=== PATIENT | female | born 1980 | race Caucasian/White ===

== ENCOUNTER 2021-05-02 16:50 | Emergency (ER) | payer OTHER, SELFPAY ==
--- NOTE | ~2021-05-02 | XR_ITS ---
EXAMINATION: XR forearm LT 2V DATE: 05/02/2021 17:30 INDICATION: Left forearm injury and pain. TECHNIQUE: 2 views of left forearm were obtained. COMPARISON: None. FINDINGS: Bone alignment is normal. No fracture. Joint spaces are well maintained. There is no elbow joint effusion. IMPRESSION: 1. Normal left forearm. Reviewed, dictated and finalized at location A. IMPRESSION: 1. Normal left forearm.
--- NOTE | ~2021-05-02 | XR_ITS ---
EXAMINATION: XR hand LT min 3V DATE: 05/02/2021 17:05 INDICATION: Left hand injury and pain. TECHNIQUE: 3 views of left hand were obtained. COMPARISON: None. FINDINGS: Bone alignment is normal. No fracture. Joint spaces are well maintained. IMPRESSION: 1. No fracture. Reviewed, dictated and finalized at location A. IMPRESSION: 1. No fracture.
--- NOTE | 2021-05-02 17:01 | ED.UPPEXIN ---
HPI - Extremity Injury (Upper) General Chief Complaint: Extremity Injury, Upper Stated Complaint: Lt hand pain Time Seen by Provider: 05/02/21 16:55 Source: patient and RN notes reviewed Limitations: no limitations History of Present Illness HPI narrative: 40-year-old female presents to the [facility] with an abrasion and pain to the left lateral hand. Patient states that she tripped and fell onto her hand. Did not hit head. No loss of consciousness. Reports that she had her Tdap done 4 years ago. Related Data Home Medications Medication Instructions Recorded Confirmed lisinopril 20 mg PO DAILY 05/02/21 05/02/21 Allergies Allergy/AdvReac Type Severity Reaction Status Date / Time No Known Allergies Allergy Verified 05/02/21 16:55 Review of Systems Review of Systems: All systems reviewed & are unremarkable except as noted in HPI and below Constitutional: Constitutional: Reports no additional constitutional complaints, Denies chills and Denies fever(s) Eyes: Eyes: Reports no additional eye complaints ENT: Reports system reviewed and no additional complaints, except as documented Cardiovascular: Cardiovascular: Reports no additional cardiovascular complaints Respiratory: Respiratory: Reports no additional respiratory complaints Musculoskeletal: Musculoskeletal: Reports as per HPI and Reports arthralgias (Left forearm, left wrist, left hand) Integumentary/Breasts: Skin/Breast: Reports as per HPI Comments: Abrasion to the lateral left hand Neurologic: Reports system reviewed and no additional complaints, except as documented Psychiatric: Psychiatric: Reports no additional psychiatric complaints Allergic/Immunologic: Allergic/Immunologic: Reports no additional allergic/immunologic complaints PMFSH Past Medical History Medical History (Updated 05/02/21 @ 17:41 by Christen Camarena) Hypertension Surgical History Surgical History (Updated 05/02/21 @ 17:42 by Christen Camarena) H/O tubal ligation Hx of cholecystectomy Social History Social History (Updated 05/02/21 @ 17:43 by Christen Camarena) Living arrangements: with family Exam Const: General: healthy appearing, no acute distress and alert Nutritional Appearance: well nourished Orientation/consciousness: patient oriented x3 Limitations: no limitations HENMT: Head: normal to inspection Neck: Neck: normal visual inspection, no lymphadenopathy and no meningeal signs Chest: Chest palpation & inspection: normal inspection of the chest Resp: Effort & Inspection: normal respiratory effort and no use of accessory muscles Auscultation: clear to auscultation bilaterally, no crackles, no rales, no rhonchi and no wheezes Cardio: Rate: regular rate Rhythm: regular rhythm Back/Spine/Pelvis: Back: no CVA tenderness Skin: Wounds: wounds noted avulsion left lateral hand size (2 x 1 cm), bed beefy red, drainage (Serosanguineous) and without odor; without any surrounding erythema Neuro: General: patient oriented x3, moves all extremities, no meningeal signs and no focal motor deficits Speech: normal speech Gait exam (Neuro): Normal gait present Extrem: General: normal to inspection, full ROM and capillary refill normal Left upper extremity: elbow/forearm tenderness of the proximal forearm and distal pulses intact; no swelling, no abrasions and no ecchymosis, wrist tenderness of the dorsal wrist and normal ROM and hand normal capillary refill, neuromotor exam normal, neurosensory exam normal, tenderness of the 4th digit and of the 5th digit, abnormal ROM of finger pain with active ROM of the 4th digit and of the 5th digit, swelling (lateral hand), abrasion (lateral hand) and ecchymosis (lateral hand); no lacerations and no foreign bodies Elbow/forearm/wrist images: 1. Tenderness to palpation. Hand/finger images: 1. 1 x 2 cm skin avulsion/abrasion 2. Swelling, bruising and tenderness with movement 3. Tenderness to palpation and with flexion and dors
[2021-05-02 17:13] VITALS: BP 111/65; PULSE 95; RESP 18; TEMP 36.5; O2SAT 100
[2021-05-02] MEDS: IBUPROFEN 600 MG TABLET PO (17:13)
== END 2021-05-02 17:48 | disposition home or self-care (01) ==
PROVIDERS: Emergency Provider Nurse Practitioner; PCP Family Medicine
DX: S63.502A Unspecified sprain of left wrist, initial encounter (principal); S66.912A Strain of unspecified muscle, fascia and tendon at wrist and hand level, left hand, initial encounter; W01.0XXA Fall on same level from slipping, tripping and stumbling without subsequent striking against object, initial encounter; S60.222A Contusion of left hand, initial encounter; S60.512A Abrasion of left hand, initial encounter; I10 Essential (primary) hypertension
CPT/HCPCS: 73090; 73130; 99213; A9270; G0463

== ENCOUNTER 2021-12-26 15:42 | Emergency (ER) | payer OTHER, SELFPAY ==
[2021-12-26 15:53] VITALS: BP 136/80; PULSE 115; RESP 18; TEMP 37.2; O2SAT 98
--- NOTE | 2021-12-26 15:54 | ED.BACK ---
HPI - Back Pain/Injury General Chief Complaint: Upper Respiratory Infection Stated Complaint: Fever,Lower Back Pain Time Seen by Provider: 12/26/21 15:54 Source: patient Mode of arrival: ambulatory Limitations: no limitations History of Present Illness HPI Narrative: Ms. Delgado is a 41-year-old female patient presenting to the clinic today with complaints of fever and low back pain x 2 days. She reports she has had fever as high as 102.8 ?F. She reports that she took a COVID test yesterday and it was negative. 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 Related Data Home Medications Medication Instructions Recorded Confirmed lisinopril 20 mg PO DAILY 05/02/21 12/26/21 Allergies Allergy/AdvReac Type Severity Reaction Status Date / Time No Known Allergies Allergy Verified 12/26/21 15:48 Review of Systems Review of Systems: Pertinent positives per HPI. Patient denies any rash, headache, visual changes, dizziness, cough, runny nose, sore throat, shortness of breath, chest pain, palpitations, nausea, vomiting, diarrhea, constipation, abdominal pain, or any urinary issues. [facility] Past Medical History Medical History Hypertension Surgical History Surgical History H/O tubal ligation Hx of cholecystectomy Comments At the time of my signature, I reviewed and agree with the nursing past medical, surgical, social, and family history. There is no relevant family history pertinent to the patient complaint. Exam Narrative: General: Well-developed, well nourished, in no apparent distress Head: Normocephalic, atraumatic Eyes: Pupils equally round and reactive to light bilaterally, EOM intact, sclera and conjunctive clear, no discharge, lids normal Ears: TMs intact and dull, ear canals clear, no drainage, grossly hearing normal. Nose: Nares patent, clear discharge, no inflammation, no sinus tenderness. Mouth: Oropharynx without lesions or masses, good dentition, MMM. Postnasal drip Neck: Supple, trachea midline, no enlargement of anterior or posterior cervical nodes, no thyroid masses or goiter palpable. Cardio: Regular rate and rhythm, s1 and s2 normal, no murmur appreciated. Resp: Clear to auscultation bilaterally anteriorly and posteriorly, no rhonchi, rales, wheezing or rubs general: Well-developed, well nourished, in no apparent distress. Abdomen: Soft, pliable, no organomegaly, no tenderness to palpation, bowel sounds present all 4 quadrants, +right CVAT tenderness Course Course Emergency Course: Portions of this record may have been created with voice recognition software. Level of Care: Express Care Visit Vital Signs Vital signs: Vital signs reviewed MDM - Back Pain/Injury MDM Narrative Medical decision making narrative: At the time of assessment patient is resting comfortably on the exam table she is afebrile while in the office today. Reports her highest temp was 102.8. She had done an at home COVID test yesterday was negative. Influenza testing and urine analysis was completed today in the clinic. Influenza testing is negative. UA test is positive for 3+ blood and a trace of leukocytes. She is currently on her menses. I will send this for urine culture to determine if there is a urinary tract infection however she is not having any urinary symptoms at this time. I suspect a viral syndrome and supportive measures and further treatment if symptoms persist or get worse. Patient voiced understanding of discharge instructions. Differential Diagnosis Differential diagnosis: Likely other (UTI, COVID, influenza, back strain, viral syndrome, constipation) Discharge Plan Discharge Clinical Impression: Viral syndrome Patient Disposition: Home, Self-Care Condition: Stable Instructions: Viral Syndrome (ED) Additional Instructions: Cory
== END 2021-12-26 17:00 | disposition home or self-care (01) ==
PROVIDERS: Emergency Provider Nurse Practitioner Family; PCP Family Medicine
DX: B34.9 Viral infection, unspecified (principal); I10 Essential (primary) hypertension
CPT/HCPCS: 81003; 87086; 87088; 87804; 99213; G0463

== ENCOUNTER 2023-02-18 18:44 | Emergency (ER) | payer OTHER, SELFPAY ==
[2023-02-18 18:50] VITALS: BP 129/81; PULSE 87; RESP 18; TEMP 36.6; O2SAT 99
--- NOTE | 2023-02-18 18:59 | ED.EAR ---
HPI - Ear Problem General Chief complaint: Ear Stated complaint: LT Ear Irritation Time Seen by Provider: 02/18/23 18:53 Source: patient and RN notes reviewed Mode of arrival: ambulatory Limitations: no limitations History of Present Illness HPI Narrative: Patient presents today complaining of left ear pain x2 days. Denies any additional symptoms including drainage, decreased hearing, congestion, rhinorrhea, fever, cough. She has been taking ibuprofen with relief and currently rates her pain 09/09. Related Data Home Medications Medication Instructions Recorded Confirmed lisinopril 20 mg tablet 20 mg PO DAILY 05/02/21 02/18/23 Allergies Allergy/AdvReac Type Severity Reaction Status Date / Time No Known Allergies Allergy Verified 02/18/23 18:46 Review of Systems Review of Systems: CONSTITUTIONAL: Denies body aches, fever, chills, or sweats. EYES: Denies visual changes, redness, or discharge. ENT: Denies rhinorrhea, congestion, sore throat. + left ear pain CARDIOVASCULAR: Denies chest pain, palpitations, or edema. RESPIRATORY: Denies cough or dyspnea. GASTROINTESTINAL: Denies abdominal pain, nausea, vomiting, or diarrhea. GENITOURINARY: Denies dysuria or hematuria. SKIN: Denies rash, itching, or wounds. MUSCULOSKELETAL: Denies back pain, joint pain, or myalgia. NEUROLOGIC: Denies headache, numbness, tingling, or weakness. PSYCH: Denies depression or anxiety. PMFSH Past Medical History Medical History Hypertension Surgical History Surgical History H/O tubal ligation Hx of cholecystectomy Social History Social History Living arrangements: with family Comments At time of signature, I have reviewed and agree with nursing past medical, surgical, social and family history unless otherwise noted. Please see nursing chart for further information. There is no relevant family history pertinent to the presenting complaint Exam Narrative: GENERAL: Well-appearing, well-nourished, and in no acute distress. HEAD: Normocephalic, atraumatic. EYES: EOMI. No redness or drainage. Conjunctivae normal. ENT: Mucous membranes pink and moist. Nares clear. No rhinorrhea. Right TM and canal normal. Left canal normal. Left TM is injected and opaque. NECK: Normal AROM. Supple. No lymphadenopathy. CHEST: No respiratory distress. EXTREMITIES: Normal range of motion. No edema. SKIN: Warm, dry, no rash. Capillary refill normal. Normal skin turgor. NEURO: No focal deficits. Alert and oriented x3. Gait steady. PSYCH: Normal affect. No signs of depression or anxiety. Course Course Level of Care: Express Care Visit Vital Signs Vital signs: Vital Signs Temperature 97.9 F 02/18/23 18:50 Pulse Rate 87 02/18/23 18:50 Respiratory Rate 18 02/18/23 18:50 Blood Pressure 129/81 02/18/23 18:50 Pulse Oximetry 99 02/18/23 18:50 Oxygen Delivery Room Air 02/18/23 18:50 Temperature 97.9 F 02/18/23 18:50 Pulse Rate 87 02/18/23 18:50 Respiratory Rate 18 02/18/23 18:50 Blood Pressure 129/81 02/18/23 18:50 Pulse Oximetry 99 02/18/23 18:50 Oxygen Delivery Room Air 02/18/23 18:50 Reviewed. Pt has been instructed to follow up with her PCP regarding her elevated blood pressure today. Medical Decision Making MDM Narrative Medical decision making narrative: Exam consistent with left otitis media. Will treat with amoxicillin. Anticipatory guidance given. Differential Diagnosis Differential Diagnosis: Otitis media, otitis externa, ruptured TM, serous otitis, eustachian tube dysfunction, cerumen impaction Vital Signs Vital Signs: Vital Signs Temperature 97.9 F 02/18/23 18:50 Pulse Rate 87 02/18/23 18:50 Respiratory Rate 18 02/18/23 18:50 Blood Pressure 129/81 02/18/23 18:50 Pul
== END 2023-02-18 19:04 | disposition home or self-care (01) ==
PROVIDERS: Emergency Provider Nurse Practitioner; PCP Family Medicine
DX: H66.92 Otitis media, unspecified, left ear (principal); I10 Essential (primary) hypertension
CPT/HCPCS: 99213; G0463

== ENCOUNTER 2023-11-19 08:01 | Emergency (ER) | payer OTHER, SELFPAY ==
--- NOTE | 2023-11-19 08:15 | ED.EAR ---
HPI - Ear Problem General Chief complaint: Ear Stated complaint: lt ear pain Time Seen by Provider: 11/19/23 08:14 Source: patient, RN notes reviewed and old records reviewed Mode of arrival: ambulatory Limitations: no limitations History of Present Illness HPI Narrative: 43-year-old female to Express Care with complaint left ear pain and left-sided throat pain for 3 days. Patient denies fever, cough, or GI complaints. Patient able to speak in full sentences. Patient able to tolerate fluids by mouth. Related Data Home Medications Medication Instructions Recorded Confirmed lisinopril 20 mg tablet 20 mg PO DAILY 05/02/21 11/19/23 Allergies Allergy/AdvReac Type Severity Reaction Status Date / Time No Known Allergies Allergy Verified 11/19/23 08:17 Review of Systems Review of Systems: All systems reviewed & are unremarkable except as noted in HPI and below Constitutional: Constitutional: Reports no additional constitutional complaints and Denies fever(s) Eyes: Eyes: Reports no additional eye complaints ENT: Reports as per HPI, Reports otalgia (left) and Reports sore throat Cardiovascular: Cardiovascular: Reports no additional cardiovascular complaints, Denies chest pain and Denies dyspnea Respiratory: Respiratory: Reports no additional respiratory complaints, Denies cough and Denies dyspnea Musculoskeletal: Musculoskeletal: Reports no additional musculoskeletal complaints Neurologic: Reports system reviewed and no additional complaints, except as documented Psychiatric: Psychiatric: Reports no additional psychiatric complaints PMFSH Past Medical History Medical History Hypertension Surgical History Surgical History H/O tubal ligation Hx of cholecystectomy Social History Social History Living arrangements: with family Comments At the time of my signature, I reviewed and agree with the nursing past medical, surgical, social, and family history. There is no relevant family history pertinent to the patient complaint. Exam Const: General: cooperative, healthy appearing, comfortable, no acute distress, alert and well nourished Nutritional Appearance: well nourished Orientation/consciousness: patient oriented x3 Limitations: no limitations HENMT: Head: normal to inspection Ears: external ears normal and TM abnormal dull, with fluid behind the TM on the left and not mobile on the left Face/Nose/Sinus: Normal external nose present, Normal nares present, normal facial exam, No erythema and No edema Face and sinus: normal facial exam, no erythema and no edema Mouth: Yes Normal oral and palatal mucosa present Throat: postnasal drainage Eyes: General: appearance normal, both eyes and all related structures Neck: Neck: normal visual inspection, full ROM and no meningeal signs Lymphatic: no lymphadenopathy noted and no lymphedema noted Chest: Chest palpation & inspection: normal inspection of the chest Resp: Effort & Inspection: normal respiratory effort and able to speak in complete sentences Auscultation: clear to auscultation bilaterally Cardio: Jugular venous distension: no JVD Rate: regular rate Rhythm: regular rhythm Back/Spine/Pelvis: Cervical Spine: cervical ROM normal Skin: General skin exam: normal color, no rashes or lesions noted and turgor normal Neuro: General: patient oriented x3, gait normal, moves all extremities and no meningeal signs Speech: normal speech Gait exam (Neuro): Normal gait present Extrem: General: normal to inspection, full ROM and capillary refill normal Psych: Appearance: grossly normal and well kempt Course Course Emergency Course: Some parts of this dictation were generated by voice recognition software and may contain typographical and/or grammatical inaccuracies. Level
[2023-11-19 08:17] VITALS: BP 121/70; PULSE 88; RESP 18; TEMP 36.4; O2SAT 99
[2023-11-19 08:18] VITALS: BP 121/70; PULSE 88; RESP 18; TEMP 36.4; O2SAT 99
== END 2023-11-19 08:38 | disposition home or self-care (01) ==
PROVIDERS: Emergency Provider Nurse Practitioner Family; PCP Family Medicine
DX: H66.92 Otitis media, unspecified, left ear (principal); I10 Essential (primary) hypertension
CPT/HCPCS: 99213; G0463

== ENCOUNTER 2024-02-13 04:30 | Emergency (ER) | payer SELFPAY ==
[2024-02-13 04:50] VITALS: BP 156/122; PULSE 115; RESP 20; TEMP 36.7; O2SAT 100
--- NOTE | 2024-02-13 05:06 | ED.GENADULT ---
HPI - General Adult General Chief complaint: Unspecified Stated complaint: I have to go #2 and can't get it out Time Seen by Provider: 02/13/24 04:39 History of Present Illness HPI narrative: 43-year-old female presenting with 4 hours of constipation. no history of constipation. by time I interviewed the patient she had a bowel movement is requesting discharge. Related Data Home Medications Medication Instructions Recorded Confirmed lisinopril 20 mg tablet 20 mg PO DAILY 05/02/21 11/19/23 Allergies Allergy/AdvReac Type Severity Reaction Status Date / Time No Known Allergies Allergy Verified 11/19/23 08:17 [facility] Past Medical History Medical History Hypertension Surgical History Surgical History H/O tubal ligation Hx of cholecystectomy Social History Social History Living arrangements: with family Exam Narrative: APPEARANCE: No apparent distress. Head: atraumatic. EYES: EOMI, NOSE: Atraumatic NECK: Trachea midline RESPIRATORY: No increased rate of breathing CARDIOVASCULAR: RRR, ABDOMINAL: Non-distended Soft nontender MUSCULOSKELETAl: No obvious deformities NEURO: Alert. Moving 4/4 extremities SKIN:: Warm, dry. Normal color PSYCHIATRIC: Normal affect Course Vital Signs Vital signs: Vital Signs Temperature 98.1 F 02/13/24 04:50 Pulse Rate 115 H 02/13/24 04:50 Respiratory Rate 02/13/24 04:50 Blood Pressure 156/122 H 02/13/24 04:50 Pulse Oximetry 100 02/13/24 04:50 Oxygen Delivery Room Air 02/13/24 04:50 Temperature 98.1 F 02/13/24 04:50 Pulse Rate 115 H 02/13/24 04:50 Respiratory Rate 20 02/13/24 04:50 Blood Pressure 156/122 H 02/13/24 04:50 Pulse Oximetry 100 02/13/24 04:50 Oxygen Delivery Room Air 02/13/24 04:50 Medical Decision Making [facility] Narrative Medical decision making narrative: -Course: 43-year-old presenting with 4 hours of constipation. She was able have a bowel movement in the emergency department requesting discharge. My exam her abdomen is soft nontender no guarding rebound. Patient discharged with return precautions. Vital Signs Vital Signs: Vital Signs Temperature 98.1 F 02/13/24 04:50 Pulse Rate 115 H 02/13/24 04:50 Respiratory Rate 20 02/13/24 04:50 Blood Pressure 156/122 H 02/13/24 04:50 Pulse Oximetry 100 02/13/24 04:50 Oxygen Delivery Room Air 02/13/24 04:50 Temperature 98.1 F 02/13/24 04:50 Pulse Rate 115 H 02/13/24 04:50 Respiratory Rate 20 02/13/24 04:50 Blood Pressure 156/122 H 02/13/24 04:50 Pulse Oximetry 100 02/13/24 04:50 Oxygen Delivery Room Air 02/13/24 04:50 Discharge Plan Discharge Clinical Impression: Constipation Patient Disposition: Home, Self-Care Condition: Stable Instructions: Antibiotic Form, Constipation (DC) Additional Instructions: Follow-up with your PCP. You can use [id number] stool softeners he continued constipation. Prescriptions: No Action lisinopril 20 mg tablet 20 mg PO DAILY cefdinir 300 mg capsule 300 mg PO Q12H 10 Days Qty: 20 0RF Follow-up/Referrals: Erick,Noris Taylor MD [Primary Care Provider] -
[2024-02-13 05:11] VITALS: BP 138/72; PULSE 85; RESP 18; O2SAT 100
--- NOTE | 2024-02-13 05:12 | PC.NURSE ---
pt had a bowel movement prior to medication being administered.
== END 2024-02-13 05:11 | disposition home or self-care (01) ==
LOC: ANHED 05:15
PROVIDERS: Emergency Provider Emergency Medicine; PCP Family Medicine
DX: K59.00 Constipation, unspecified (principal); I10 Essential (primary) hypertension; Z90.49 Acquired absence of other specified parts of digestive tract
CPT/HCPCS: 99283

== ENCOUNTER 2024-09-20 18:37 | Emergency (ER) | payer OTHER, BC, SELFPAY ==
--- NOTE | 2024-09-20 18:51 | ED.BACK ---
HPI - Back Pain/Injury General Chief Complaint: Back Pain/Injury Stated Complaint: back injury Time Seen by Provider: 09/20/24 18:50 Source: patient Mode of arrival: ambulatory Limitations: no limitations History of Present Illness HPI Narrative: Eda is a 44-year-old female patient presenting to the clinic today with complaints of back pain/injury. She reports she stepped forward and was reaching out to grab a child who was crying and felt a pain in he her left/right mid back. States that the pain is worse with movement of her arms and also when she is trying to sit. She denies any saddle anesthesia or any numbness or tingling going down her legs. Pain is worse with movement. Related Data Home Medications ?Medication ?Instructions ?Recorded ?Confirmed ?Last Taken ?Type lisinopril 20 mg tablet 20 mg PO DAILY 05/02/21 11/19/23 Unknown History Allergies Allergy/AdvReac Type Severity Reaction Status Date / Time No Known Allergies Allergy Verified 11/19/23 08:17 Review of Systems Review of Systems: Pertinent positives per HPI. Patient denies any fever, chills, rash, headache, visual changes, dizziness, cough, runny nose, sore throat, shortness of breath, chest pain, palpitations, nausea, vomiting, diarrhea, constipation, abdominal pain, or any urinary issues. PMFSH Past Medical History Medical History Hypertension Surgical History Surgical History H/O tubal ligation Hx of cholecystectomy Social History Social History Living arrangements: with family Comments At the time of my signature, I reviewed and agree with the nursing past medical, surgical, social, and family history. There is no relevant family history pertinent to the patient complaint. Exam Narrative: General: Well-developed, well nourished, in no apparent distress Head: Normocephalic, atraumatic. Cardio: Regular rate and rhythm, s1 and s2 normal, no murmur appreciated. Resp: Clear to auscultation bilaterally, no rhonchi, rales, wheezing or rubs. Musculoskeletal: No deformity, tender to palpation over the right and left mid low back just below the bra line, pain with raising her arms up as well as turning side to side, grossly normal range of motion, muscle strength strong and equal in BLE. SLT negative, patellar reflexes 2/4 bilaterally, negative foot drop, normal gait and station Course Course Emergency Course: Portions of this record may have been created with voice recognition software. Level of Care: Express Care Visit Vital Signs Vital signs: Vital signs reviewed MDM - Back Pain/Injury MDM Narrative Medical decision making narrative: At the time of visit patient is resting comfortably on the exam table. Patient appears to be nontoxic. Plan: I suspect patient has a mid back strain. Prescription for Medrol Dosepak and Flexeril was sent to the pharmacy. Supportive measures were discussed with the patient and they voiced understanding discharge instructions and agrees to treatment plan. Return precautions reviewed Differential Diagnosis Differential diagnosis: Likely lumbar radiculopathy, sciatica, strain of lumbar region, thoracic back pain, discitis and other (It thoracic back strain) Discharge Plan Discharge Clinical Impression: Strain of mid-back Qualifiers: Encounter type: initial encounter Qualified Code(s): S29.012A - Strain of muscle and tendon of back wall of thorax, initial encounter Patient Disposition: Home, Self-Care Condition: Stable Instructions: Antibiotic Form, Thoracic Back Strain (ED) Additional Instructions: Take any prescription medication only as prescribed-Medrol Dosepak and Flexeril Be mindful of sedation precautions given to you if taking a muscle relaxer. May use heat or ice to the affected area Consider massage or chiropractor adjustment if this was discussed with provider May use blue emu, lidocaine patches, or asper cream to affected area- do not apply heat or ice directly over cream- can cause burn. Complete appropriate back stretching exercises. Follow up with your PCP in 3-5 days if symptom persist. Patient Language: Honduran Prescriptions: New methylprednisolone [Medrol (Garth)] 4 mg tablets,dose pack See Rx Instructions PO .COMPLEX Qty: 21 0RF Rx Instructions: orally per package directions cyclobenzaprine 10 mg tablet 10 mg PO Q8H PRN (Reason: muscle spasm) 7 Days Qty: 21 0RF No Action lisinopril 20 mg tablet 20 mg PO DAILY cefdinir 300 mg capsule 300 mg PO Q12H 10 Days Qty: 20 0RF Follow-up/Referrals: UNKNOWN,DOCTOR [Primary Care Provider] - Stand Alone Forms: Work/School Release IP Time of Disposition: 19:05 Quality NIHSS Nursing Documentation ED NIHSS nursing documentation: reviewed/agree
[2024-09-20 19:05] VITALS: BP 144/88; PULSE 95; RESP 18; TEMP 36.4; O2SAT 100
--- OUTSIDE RECORDS SUMMARY | 2024-09-22 20:22 | XMS_ITS | Clinical Summary ---
Author Organization [facility] Address [address] [place] [address]. [place] [address] [place] [address] Care Team Providers Care Rn Mental Health Name Role Phone Unavailable Primary Care Provider Unavailabl e Social History Tobacco Use Types Packs/Day Years Used Date Smoking Tobacco: Never Assessed Comments Unknown Sex and Gender Information Value Date Recorded Sex Assigned at Not on file Legal Sex Female 4:39 PM CDT Gender Identity Not on file Sexual Orientation Not on file Plan of Treatment Health Maintenance Due Date Last Done Comments Cervical Cancer Screening Pa p Smear (Age 30 to 64) Every 3 Years 1981 Annual Physical 1984 Hepatitis C 1999 DTaP, Tdap and Td Vaccines ( 1 - Tdap) 2000 Hepatitis B Vaccines (1 of 3 - 19+ 3-dose series) 2000 Cervical Cancer Screening Pa p with HPV Testing (Age 30 to 64) Every 5 Years 2011 Cervical Cancer Screening with HPV 2011 Mammogram Screening 2021 COVID-19 Vaccine (2023-2 5 season) 2024 Influenza Adult (#1) 2024 HPV Vaccines Aged Out No longer eligi ble based on patient's age to complete this topic Meningococcal Vaccine Aged Out No sridhar chuck eligible based on patient's age to complete this topic Pneumococcal Vaccine: Pediat rics (0 to 5 Years) and At-Risk Patients (6 to 64 Years) Aged Out No longer eligible b ased on patient's age to complete this topic RSV Immunizations Under 20 Months Aged Out No longer eligible based on patient's age to complete this topic
--- OUTSIDE RECORDS SUMMARY | 2024-09-22 20:22 | XMS_ITS | Data Portability ---
Author Organization [facility] [employer], Main Office Address [address] [place] [address] Assessment No assessment recorded. Plan of Treatment Reminders Order Date Submit Date Provider Last Modified By Organization Details Last Modified Time Details Appointments None recorded. Lab CBC 2022 023 [email or web address] [facility] (Lab), [address] [place], [address], 3 10:54:30 TSH, serum, reflex free T4 2022 023 [email or web address] [facility] (Lab), [address] [place], [address], 3 10:54:30 CMP, serum or plasma [address] (Lab), [address] [place], [address], 3 14:09:16 HbA1c (hemoglobin A1c), blood [address] (Lab), [address] [place], [address], 3 14:09:37 lipid panel, serum 2022 023 [email or web address] [facility] (Lab), [address] [place], [address], 3 10:54:31 Referral gynecologis t referral 2022 023 [email or web address] [facility], [address], [place], [address], 4 09:26:01 Procedures None recorded. Surgeries None recorded. Imaging None recorded. Medication Orders lisinopril 20 mg tablet 2022 023 [id number], [address] [facility], [place], [place], [id number], 3 10:00:49 Patient TargetsNo targets recorded. Patient InstructionsNo instructions recorded. 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 0 Diabe page Scree nancy Crite kirill: <5.7% Consi stent with absen ce of diabe page 5.7-6 .4% Consi stent with incre ased risk for diabe page (pred iabet es) >OR=6 .5% Consi stent with diabe page REFER ENCE: Diabe page Care 2016, 39(Sewell ppl.1 ):s13 -s22 Not Available [facility] (Lab) [address] [place], [address], 12/05/2021 20:16:20 12/06/19 22 12/05/2021 URINA LYSIS COMPL ETE, IRIS color light- yellow Not Available [facility] (Lab) [address] [place], [address], 12/05/2021 20:02:16 12/06/19 22 12/05/2021 URINA LYSIS COMPL ETE, IRIS appear turbid abnormal Not Available [facility] (Lab) [address] [place], [address], 12/05/2021 20:02:16 12/06/19 22 12/05/2021 URINA LYSIS COMPL ETE, IRIS specific gravity 1.005 1.001- 1.030 Not Available [facility] (Lab) [address] [place], [address], 12/05/2021 20:02:16 12/06/19 22 12/05/2021 URINA LYSIS COMPL ETE, IRIS pH 6.0 pH_un its 5.0-9. 0 Not Available [facility] (Lab) [address] [place], [address], 12/05/2021 20:02:16 12/06/19 22 12/05/2021 URINA LYSIS COMPL ETE, IRIS leukocytes 75 tony/u L negati ve- abnormal Not Available [facility] (Lab) [address] [place], [address], 12/05/2021 20:02:16 12/06/19 22 12/05/2021 URINA LYSIS COMPL ETE, IRIS nitrite negati ve negati ve- Not Available [facility] (Lab) [address] [place], [address], 12/05/2021 20:02:16 12/06/19 22 12/05/2021 URINA LYSIS COMPL ETE, IRIS protein negati ve mg/dL negati ve- Not Available [facility] (Lab) [address] [place], [address], 12/05/2021 20:02:16 12/06/19 22 12/05/2021 URINA LYSIS COMPL ETE, IRIS glucose normal mg/dL normal - Not Available [facility] (Lab) [address] [place], [address], 12/05/2021 20:02:16 12/06/19 22 12/05/2021 URINA LYSIS COMPL ETE, IRIS ketones negati ve mg/dL negati ve- Not Available [facility] (Lab) [address] [place], [address], 12/05/2021 20:02:16 12/06/19 22 12/05/2021 URINA LYSIS COMPL ETE, IRIS urobilinogen normal mg/dL normal - Not Available [facility] (Lab) [address] [place], [address], 12/05/2021 20:02:16 12/06/19 22 12/05/2021 URINA LYSIS COMPL ETE, IRIS bilirubin negati ve mg/dL negati ve- Not Available [facility] (Lab) [address] [place], [address], 12/05/2021 20:02:16 12/06/19 22 12/05/2021 URINA LYSIS COMPL ETE, IRIS blood negati ve mg/dL negati ve- Not Available [facility] (Lab) [address] [place], [address], 12/05/2021 20:02:16 12/06/19 22 12/05/2021 URINA LYSIS COMPL ETE, IRIS white blood cells 0-8 /i??h pfi?? 0-8 Not Available [facility] (Lab) [address] [place], [address], 12/05/2021 20:02:16 12/06/19 22 12/05/2021 URINA LYSIS COMPL ETE, IRIS red blood cells none /i??h pfi?? 0-4 Not Available [facility] (Lab) [address] [place], [address], 12/05/2021 20:02:16 12/06/19 22 12/05/2021 URINA LYSIS COMPL ETE, IRIS bacteria many abnormal Not Available [facility] (Lab) [address] [place], [address], 12/05/2021 20:02:16 12/06/19 22 12/05/2021 URINA LYSIS COMPL ETE, IRIS squamous epithelial packed field /i??l pfi?? abnormal Not Available [facility] (Lab) [address] [place], [address], 12/05/2021 20:02:16 12/06/19 22 12/05/2021 COMPR EHENS DUSTIN METAB OLIC PANEL sodium 140 mmol/ L 137-14 5 Not Available [facility] (Lab) [address] [place], [address], 12/05/2021 19:53:29 12/06/19 22 12/05/2021 COMPR EHENS DUSTIN METAB OLIC PANEL potassium 4.7 mmol/ L 3.5-5. 1 Not Available [facility] (Lab) [address] [place], [address], 12/05/2021 19:53:29 12/06/19 22 12/05/2021 COMPR EHENS DUSTIN METAB OLIC PANEL chloride 101 mmol/ L 98-107 Not Available [facility] (Lab) [address] [place], [address], 12/05/2021 19:53:29 12/06/19 22 12/05/2021 COMPR EHENS DUSTIN METAB OLIC PANEL carbon dioxide 28 mmol/ L 22-30 Not Available [facility] (Lab) [address] [place], [address], 12/05/2021 19:53:29 12/06/19 22 12/05/2021 COMPR EHENS DUSTIN METAB OLIC PANEL agap 15.7 mmol/ L 14-22 Not Available [facility] (Lab) [address] [place], [address], 12/05/2021 19:53:29 12/06/19 22 12/05/2021 COMPR EHENS DUSTIN METAB OLIC PANEL glucose 131 mg/dL 70-99 high Not Available [facility] (Lab) [address] [place], [address], 12/05/2021 19:53:29 12/06/19 22 12/05/2021 COMPR EHENS DUSTIN METAB OLIC PANEL BUN 10 mg/dL 8-19 Not Available [facility] (Lab) [address] [place], [address], 12/05/2021 19:53:29 12/06/19 22 12/05/2021 COMPR EHENS DUSTIN METAB OLIC PANEL creatinine 0.84 mg/dL 0.66-1 .25 Not Available [facility] (Lab) [address] [place], [address], 12/05/2021 19:53:29 12/06/19 22 12/05/2021 COMPR EHENS DUSTIN METAB OLIC PANEL GFR >60 Refer ence Range : Carriere ge GFR Healt hy Adult : >60 mL/mi n/1.7 3 m2 Chron ic Kidne y Disea se: 15-60 mL/mi n/1.7 3 m2 Kidne y Failu re: <15/m L/min /1.73 m2 www.n iddk. nih.g ov The MDRD study equat ion has not been valid ated in child elizabeth <18 years of age; pregn ant women ; the elder ly >85 years of age; or in some racia l or ethni c subgr oups, such as Hispa nics. Outsi de the valid ated karlee eters , estim ated GFR is less accur ate, requi ring clini annmarie judgm ent on a case- by-ca se basis . Clini annmarie inter preta tion for other races and ages must be made by the clini [place]. The MDRD study equat ion has not been valid ated for the evalu ation of serum creat inine relat ed to nutri les l statu s or medic ation usage . For perso ns <18 years of age, a pedia tric GFR calcu lator is avail able on the [facility] websi te: https ://varun hill.marcial cagle.o rg/pr ofess ional s/kdo qi/gf r_cal culat or Not Available [facility] (Lab) [address] [place], [address], 12/05/2021 19:53:29 12/06/19 22 12/05/2021 COMPR EHENS DUSTIN METAB OLIC PANEL alkaline phosphatase 79 U/L 38-126 Not Available [facility] (Lab) [address] [place], [address], 12/05/2021 19:53:29 12/06/19 22 12/05/2021 COMPR EHENS DUSTIN METAB OLIC PANEL alanine aminotransfe rase 106 U/L 0-35 high Not Available [facility] (Lab) [address] [place], [address], 12/05/2021 19:53:29 12/06/19 22 12/05/2021 COMPR EHENS DUSTIN METAB OLIC PANEL aspartate aminotransfe rase 74 U/L 15-37 high Not Available [facility] (Lab) [address] [place], [address], 12/05/2021 19:53:29 12/06/19 22 12/05/2021 COMPR EHENS DUSTIN METAB OLIC PANEL bilirubin, total 1.40 mg/dL 0.20-1 .30 high Not Available [facility] (Lab) [address] [place], [address], 12/05/2021 19:53:29 12/06/19 22 12/05/2021 COMPR EHENS DUSTIN METAB OLIC PANEL calcium 10.0 mg/dL 8.4-10 .2 Not Available [facility] (Lab) [address] [place], [address], 12/05/2021 19:53:29 12/06/19 22 12/05/2021 COMPR EHENS DUSTIN METAB OLIC PANEL total protein 8.3 g/dL 6.3-8. 2 high Not Available [facility] (Lab) [address] [place], [address], 12/05/2021 19:53:29 12/06/19 22 12/05/2021 COMPR EHENS DUSTIN METAB OLIC PANEL albumin 4.8 g/dL 3.4-5. 0 Not Available [facility] (Lab) [address] [place], [address], 12/05/2021 19:53:29 12/06/19 22 12/05/2021 COMPR EHENS DUSTIN METAB OLIC PANEL globulin 3.5 g/dL 2.6-4. 2 Not Available [facility] (Lab) [address] [place], [address], 12/05/2021 19:53:29 12/06/19 22 12/05/2021 COMPR EHENS DUSTIN METAB OLIC PANEL A/G ratio 1.4 ratio 1.0-2. 0 Not Available [facility] (Lab) [address] [place], [address], 12/05/2021 19:53:29 12/06/19 22 12/05/2021 LIPID PANEL cholesterol 214 mg/dL 140-19 9 high NIH JANE NSUS RECOM MENDA TION FOR ALMAS STERO L: ADULT CHILD LOW RISK: <200 <170 BORDE RLINE : <200- 239 ----- HIGH RISK: >240 >200 Not Available [facility] (Lab) [address] [place], [address], 12/05/2021 19:53:25 12/06/19 22 12/05/2021 LIPID PANEL triglyceride s 169 mg/dL 0-150 high NIH JANE NSUS REPOR T RECOM MENDA TION FOR TRIGL YCERI RASHAD: ADULT CHILD LOW RISK: <150 ----- BODER LINE: 150-1 99 ----- HIGH RISK: >200 ----- Not Available [facility] (Lab) [address] [place], [address], 12/05/2021 19:53:25 12/06/19 22 12/05/2021 LIPID PANEL HDL cholesterol 42 mg/dL 40- Not Available [facility] (Lab) [address] [place], [address], 12/05/2021 19:53:25 12/06/1912/05/2021 LIPID PANEL LDL cholesterol, calculated 138 mg/dL 0-130 high NIH JANE NSUS REPOR T RECOM MENDA TIONS FOR LDL: ADULT CHILD LOW RISK <130 <110 (OPTI MAL LDL) <100 ----- BORDE RLINE : 130-1 59 ----- HIGH RISK: >160 >130 A TRIGL YCERI DE RESUL T >400 INVAL IDATE S THE CALCU LATIO N FOR LDL FRACT IONAT ION - THE LDL RESUL T WILL NOT BE REPOR JOHNATHAN. Not Available [facility] (Lab) [address] [place], [address], 12/05/2021 19:53:25 12/06/19 22 12/05/2021 CBC/C OMPLE TE BLD COUNT W/DIF F white blood cells 5.4 x10'3 /uL 4.2-10 .8 Not Available [facility] (Lab) [address] [place], [address], 12/05/2021 19:21:44 12/06/19 22 12/05/2021 CBC/C OMPLE TE BLD COUNT W/DIF F red blood cells 4.66 x10'6 /uL 3.80-5 .20 Not Available [facility] (Lab) [address] [place], [address], 12/05/2021 19:21:44 12/06/19 22 12/05/2021 CBC/C OMPLE TE BLD COUNT W/DIF F hemoglobin 14.0 g/dL 12.0-1 5.6 Not Available [facility] (Lab) [address] [place], [address], 12/05/2021 19:21:44 12/06/19 22 12/05/2021 CBC/C OMPLE TE BLD COUNT W/DIF F hematocrit 42.3 % 35.7-4 5.7 Not Available [facility] (Lab) [address] [place], [address], 12/05/2021 19:21:44 12/06/19 22 12/05/2021 CBC/C OMPLE TE BLD COUNT W/DIF F mean red cell volume 90.8 fL 82.0-9 9.0 Not Available [facility] (Lab) [address] [place], [address], 12/05/2021 19:21:44 12/06/19 22 12/05/2021 CBC/C OMPLE TE BLD COUNT W/DIF F mean red cell hemoglobin 30.0 pg 27.0-3 3.0 Not Available [facility] (Lab) [address] [place], [address], 12/05/2021 19:21:44 12/06/19 22 12/05/2021 CBC/C OMPLE TE BLD COUNT W/DIF F mean RBC HGB concentratio n 33.1 g/dL 31.0-3 6.0 Not Available [facility] (Lab) [address] [place], [address], 12/05/2021 19:21:44 12/06/19 22 12/05/2021 CBC/C OMPLE TE BLD COUNT W/DIF F red cell distribution width 12.5 % 11.8-1 5.5 Not Available [facility] (Lab) [address] [place], [address], 12/05/2021 19:21:44 12/06/19 22 12/05/2021 CBC/C OMPLE TE BLD COUNT W/DIF F platelets 360 x10'3 /uL 150-40 0 Not Available [facility] (Lab) [address] [place], [address], 12/05/2021 19:21:44 12/06/19 22 12/05/2021 CBC/C OMPLE TE BLD COUNT W/DIF F mean platelet volume 10.3 fL 9.0-12 .4 Not Available [facility] (Lab) [address] [place], [address], 12/05/2021 19:21:44 12/06/19 22 12/05/2021 CBC/C OMPLE TE BLD COUNT W/DIF F neutrophils 58.7 % 39.0-7 2.0 Not Available [facility] (Lab) [address] [place], [address], 12/05/2021 19:21:44 12/06/19 22 12/05/2021 CBC/C OMPLE TE BLD COUNT W/DIF F lymphocytes 31.8 % 16.0-4 7.0 Not Available [facility] (Lab) [address] [place], [address], 12/05/2021 19:21:44 12/06/19 22 12/05/2021 CBC/C OMPLE TE BLD COUNT W/DIF F monocytes 6.6 % 5.0-12 .0 Not Available [facility] (Lab) [address] [place], [address], 12/05/2021 19:21:44 12/06/19 22 12/05/2021 CBC/C OMPLE TE BLD COUNT W/DIF F eosinophils 1.8 % 1.0-7. 0 Not Available [facility] (Lab) [address] [place], [address], 12/05/2021 19:21:44 12/06/19 22 12/05/2021 CBC/C OMPLE TE BLD COUNT W/DIF F basophils 0.9 % 0.0-2. 0 Not Available [facility] (Lab) [address] [place], [address], 12/05/2021 19:21:44 12/06/19 22 12/05/2021 CBC/C OMPLE TE BLD COUNT W/DIF F immature granulocytes 0.2 % 0.00-0 .50 Not Available [facility] (Lab) [address] [facility] [place], [address], 12/05/2021 19:21:44 12/06/19 22 12/05/2021 CBC/C OMPLE TE BLD COUNT W/DIF F neutrophils, absolute count 3.19 x10'3 /uL 1.5-8. 0 Not Available [facility] (Lab) [address] [facility] [place], [address], 12/05/2021 19:21:44 12/06/19 22 12/05/2021 CBC/C OMPLE TE BLD COUNT W/DIF F lymphocytes, absolute count 1.73 x10'3 /uL 1.07-3 .43 Not Available [facility] (Lab) [address] [place], [address], 12/05/2021 19:21:44 12/06/19 22 12/05/2021 CBC/C OMPLE TE BLD COUNT W/DIF F monocytes, absolute count 0.36 x10'3 /uL 0.29-0 .99 Not Available [facility] (Lab) [address] [place], [address], 12/05/2021 19:21:44 12/06/19 22 12/05/2021 CBC/C OMPLE TE BLD COUNT W/DIF F eosinophils, absolute count 0.10 x10'3 /uL 0.02-0 .53 Not Available [facility] (Lab) [address] [place], [address], 12/05/2021 19:21:44 12/06/19 22 12/05/2021 CBC/C OMPLE TE BLD COUNT W/DIF F basophils, absolute count 0.05 x10'3 /uL 0.01-0 .08 Not Available [facility] (Lab) [address] [place], [address], 12/05/2021 19:21:44 12/06/19 22 12/05/2021 CBC/C OMPLE TE BLD COUNT W/DIF F immature granulocytes ,absolute 0.01 x10'3 /uL 0.00-0 .05 Not Available [facility] (Lab) [address] [place], [address], 12/05/2021 19:21:44 12/06/19 22 12/05/2021 CBC/C OMPLE TE BLD COUNT W/DIF F nucleated red blood cells 0.0 % -0 Not Available [facility] (Lab) [address] [place], [address], 12/05/2021 19:21:44 12/06/19 22 12/05/2021 CBC/C OMPLE TE BLD COUNT W/DIF F NRBC# 0.00 x10'3 /uL Not Available [facility] (Lab) [address] [place], [address], 12/05/2021 19:21:44 Result Notes None recorded. Problems Name Problem SNOMED Code Status Onset Date Resolution Date Notes Provider Name and Address Organization Details Recorded Time Acne 56992504 Active Not Available [facility] 3 08:48:50 Impacted cerumen 45173790 Active Not Available [employer] 3 08:48:50 Inflammatory acne 060704285 Active Not Available [facility] 3 08:48:50 Pain of ear 284785461 Active 2022 Sarah ColesILA [address] [facility], [place], [address] , [employer] 3 18:01:27 Hypertensive disorder 75009876 Active 2022 MEGHANN Tong [address], [address], [place], [address] , [facility] 3 13:56:55 Hyperlipidemi a 16617525 Active 2022 MEGHANN Tong [address], [place], [address] , [facility] 3 10:03:50 Problem Notes None recorded. Medical Equipment None Reported. Allergies Allergen ID Allergen Name Allergen Category Reaction Reaction Severity Criticality Documentation Date Start Date Code Code System Note Provider Name and Address Organization Details Recorded Time 87385 minocycli ne medicatio n Not available Not available Not available 10/29/2022 6980 RxNorm Migra jose Not Available [facility] 3 08:53:04 Medications Name Sig Start Date Stop Date Status Note LastModified by Organization Details LastModified Time doxycycli ne hyclate 100 mg capsule TAKE 1 CAPSULE BY MOUTH EVERY DAY DIRECTED active Not Available Not Available No t Available fluconazo le 150 mg tablet 08/11 completed Not Available Not Available Not Available minocycli ne 100 mg capsule Take 1 capsule every 12 hours by oral route with meals for 30 days. active New rx since Doxycyli ne not covered. Not Available Not Available Not Available lisinopri l 20 mg tablet TAKE 1 TABLET BY MOUTH EVERY DAY active Not Available Not Available No t Available Tubersol 5 tub. unit/0.1 mL intraderm al injection solution Take 1 unit by intrader mal route. active [facility] [id number] Not Available Not Available Not Available amoxicill in 875 mg tablet TAKE 1 TABLET BY MOUTH EVERY 12 HOURS FOR 7 DAYS 08/11 completed Not Available Not Available Not Available doxycycli ne monohydra te 100 mg capsule TAKE ONE CAPSULE BY MOUTH TWICE DAILY 08/11 completed Not Available Not Available Not Available cefdinir 300 mg capsule TAKE 1 CAPSULE BY MOUTH EVERY 12 HOURS FOR 7 DAYS 08/11 completed Not Available Not Available Not Available fluticaso ne propionat e 50 mcg/actua tion nasal spray,sridhar pension 08/11 completed Not Available Not Available Not Available metronida zole 0.75 % topical gel 08/11 completed Not Available Not Available Not Available doxycycli ne hyclate 100 mg tablet Take 1 tablet twice a day by oral route as directed for 30 days. active Not Available Not Available No t Available naproxen 500 mg tablet 10/22 completed Not Available Not Available Not Available amoxicill in 875 mg-potass ium clavulana te 125 mg tablet 08/11 completed Not Available Not Available Not Available neomycin- polymyxin -hydrocor t 3.5 mg-10,000 unit/mL-1 % ear drops,sridhar p SHAKE LIQUID AND INSTILL 4 DROPS TO AFFECTED EAR THREE TIMES DAILY 08/11 completed Not Available Not Available Not Available Inova 4-1 1 %-4 %-5 % topical combo pack apply to face qday 10/22 completed Not Available Not Available Not Available Virtussin AC 10 mg-100 mg/5 mL oral liquid 08/11 completed Not Available Not Available Not Available Vitals Date Recorded Body mass index (BMI) Body height Oxygen saturation Oxygen saturation in Arterial blood by Pulse oximetry Heart rate Body temperature Body weight Systolic blood pressure Diastolic blood pressure Provider Name and Address Organization Details Last Updated DateTime 2 36.9 kg/m2 162.56 cm 98 % 98 % 85 /min 97.8 [degF] 01558.3 6 g 118 mm[Hg] 80 mm[Hg] Not Available [facility] 3 08:45:17 Date Recorded Body weight Body temperature Oxygen saturation Oxygen saturation in Arterial blood by Pulse oximetry Heart rate Systolic blood pressure Diastolic blood pressure Provider Name and Address Organization Details Last Updated DateTime 3 48895.1 4 g 97.9 [degF] 98 % 98 % 86 /min 140 mm[Hg] 80 mm[Hg] Cindi Brown RN [place] [facility] 3 09:55:10 Social History Question Answer Notes LastModified by Organizat ion Details LastModified Time Tobacco Smoking Status Never Smoker Cindi Brown RN null, [place] - [facility] 08/11/2023 09:56:17 What Is Your Level Of Alcohol Consumption? Occasional [email or web address] Information not available 08/11/2023 How Many Years Have You Consumed Alcohol? 20 [email or web address] Information not available 08/11/2023 Do You Or Have You Ever Used Any Other Forms Of Tobacco Or Nicotine? No [email or web address] Information not available 08/11/2023 How Many Days In The Past Year Have You Consumed 4 Or More Drinks? 1 [email or web address] Information not available 08/11/2023 Sex: Unknown Functional Status None recorded. Mental Status None recorded. Family History Nothing Reported Notes:No colon, no ovary 2nd cousin breast cancer Medical History No medical history recorded. Gynecological HistoryNo gynecological history recorded. Obstetrics History GPAL:G 0 P 0 0 0 0 Immunizations Vaccine Type Date Status Note Provider Nam e and Address Organization Details Recorded Time MMR 09/13/2015 completed Not Available [facility] 10/29/2022 08:52:55 Tdap 06/25/2015 completed Not Available [facility] 10/29/2022 08:52:55 Hep A, adult 06/25/2015 completed Not Available [facility] 10/29/2022 08:52:55 Past Encounters Encounter ID Performer Location Encounter Start Date Encounter Closed Date Diagnosis/Indication Diagnosis SNOMED-CT Code Diagnosis ICD10 Code Diagnosis Note [id number] [facility] [address] [place] [address] 12/05/2021 00:00:00 12/05/2021 20:05:19 [id number] MEGHANN Tong [facility] [address] [place] [address] 08/11/2023 09:43:50 08/11/2023 10:41:01 Hypertensive disorder 18473275 I10 Continue to monitor. Adult heal th examination 807353029 Z00.00 Will get routine labs today. Covid vaccines- recommende d, declinedFl u vaccine- recommende d, declinedTe tanus vaccine- up to date, due 2024 Pap- years ago per patient; will get establishe d with new gynColonos copy- recommende d age 46Mammogra m- recommende d age 41 Recommende d routine eye exams and dental cleanings. Hyperlipidemia 78843137 E78.5 Recheck labs today. Discussed healthy eating. Diabetes timur loweitus screening 623972251 Z13.1 Referral needed [id number] Z76.89 Health Concerns Section Related Observation LastModified by Organization Detai ls LastModified Time None Recorded Concern Status LastModified by Organization Details LastModified Time None Recorded Advance Directives Directive None Recorded Payers Encounter Date Sequence Insurance Name Policy Number Policy Rinaldi Covered Member ID Rinaldi Member ID Guarantor Name 08/11/2023 1 [facility] - DOS ON OR AFTER 21 (MEDICAID REPLACEMENT - HMO) Eda Delgado [id number] Eda Delgado Notes Date Note Type Note Provider Name and Address Organization Details Recorded Time 08/11/2023 text/html Pt. here for annual physical. No new concerns or complaints.She is needing form completed for work. MEGHANN Tong [address] [place] [address], [facility] [address], [place], [address], [place] [facility] [place] [facility] 08/11/2023 10:17:20 OBGyn Episode No OBEpisode recorded.
--- OUTSIDE RECORDS SUMMARY | 2024-09-22 20:22 | XMS_ITS | Clinical Summary ---
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 Name Role Phone Unavailable Primary Care Provider Unavailabl e Social History Tobacco Use Types Packs/Day Years Used Date Smoking Tobacco: Never Assessed Comments Unknown Sex and Gender Information Value Date Recorded Sex Assigned at Not on file Legal Sex Female 9:46 AM CDT Gender Identity Not on file Sexual Orientation Not on file Plan of Treatment Health Maintenance Due Date Last Done Comments Hepatitis C Virus (HCV) Screening 1981 Hepatitis B Immunization (1 of 3 - 19+ 3-dose series) 2000 Pap Smear 2002 Cervical Cancer Screening (CCS) 2011 HPV/Cotest 2011 Discussion re Starting/Frequ ency of Mammograms 2021 Influenza Immunization (#1) 2024 SARS-COV-2 Immunization (2023- season) 2024 Respiratory Syncytial Virus (RSV) Immunization (Adult) (1 - 1-dose 75+ series) 2056 DTaP/Tdap/Td Immunization Discontinued 06/25/2015 TdaP Immunization Completed 06/25/2015 Meningococcal Immunization (ACWY) Aged Out No longer eligible based on patient's age to complete this topic Pneumococcal Immunization Combined Aged Out No longer eligible b ased on patient's age to complete this topic Rotavirus Immunization Aged Out No lo nger eligible based on patient's age to complete this topic
== END 2024-09-20 19:09 | disposition home or self-care (01) ==
PROVIDERS: Emergency Provider Nurse Practitioner Family
DX: S29.012A Strain of muscle and tendon of back wall of thorax, initial encounter (principal); X50.9XXA Other and unspecified overexertion or strenuous movements or postures, initial encounter; I10 Essential (primary) hypertension
CPT/HCPCS: 99213; G0463